=== PATIENT | female | born 1970 | race Caucasian/White ===

== ENCOUNTER 2020-09-18 13:15 | Day surgery (SDC) | payer BC ==
[2020-09-14 11:18] LABS: BASOPHILS # (AUTO) 0.1 X10'3 (0-0.2); BASOPHILS % (AUTO) 1.4 % (0-1); EOSINOPHILS % (AUTO) 0.9 % (0-6); LYMPHOCYTES # (AUTO) 1.3 X10'3 (1.1-4.8); MEAN CORPUSCULAR HEMOGLOBIN 32.4 PG (27.0-31.0); MEAN CORPUSCULAR HGB CONC 34.1 g/dL (33.0-36.5); MEAN CORPUSCULAR VOLUME 95.2 FL (78-98); MEAN PLATELET VOLUME 8.6 FL (7.4-10.4); MONOCYTES # (AUTO) 0.3 X10'3 (0-0.9); MONOCYTES % (AUTO) 6.6 % (2-12); NEUTROPHILS # (AUTO) 2.5 X10'3 (1.8-7.7); NEUTROPHILS % (AUTO) 60.1 % (42-75); PRE OP HEMOGLOBIN 12.6 g/dL (12.0-16.0); PRE OP PLATELET COUNT 210 X10'3 (140-440); RED BLOOD COUNT 3.89 X10'6 (4.20-5.60); RED CELL DISTRIBUTION WIDTH 12.3 % (11.5-14.5)
[2020-09-14 11:38] LABS: CLARITY,URINE SLIGHTLY CLOUDY (Clear); COLOR,URINE YELLOW (Yellow); GLUCOSE, URINE NEGATIVE (Neg); KETONES,URINE NEGATIVE (Neg); LEUKOCYTE ESTERASE ,URINE TRACE (Neg); NITRITES, URINE NEGATIVE (Neg); OCCULT BLOOD,URINE NEGATIVE (Neg); PROTEIN,URINE NEGATIVE (Neg)
[2020-09-14 11:39] LABS: CHLORIDE 105 MMOL/L (99-107); PRE OP GLUCOSE 82 MG/DL (70-104); PRE OP SODIUM 141 MMOL/L (135-145); TOTAL CARBON DIOXIDE 27.3 MMOL/L (24-32)
[2020-09-14 11:40] LABS: BLOOD UREA NITROGEN 12 MG/DL (7-18); BUN/CREATININE RATIO 11.8 (6.6-38.0); CALCIUM 8.7 MG/DL (8.5-10.1); CREATININE 1.02 MG/DL (0.40-0.90); PRE OP ANION GAP 9 (8-16); eGFR 57 ML/MIN
[2020-09-14 11:41] LABS: ALBUMIN 3.7 G/DL (3.4-5.0); ALKALINE PHOSPHATASE 41 IU/L (46-116); PRE OP ALT 16 U/L (30-65); PRE OP AST 10 U/L (10-37); PRE OP BILIRUB, TOTAL 0.4 MG/DL (0.0-1.0); TOTAL PROTEIN 7.4 G/DL (6.4-8.2)
[2020-09-14 11:45] LABS: BACTERIA,URINE 3+ /HPF (Neg); MUCUS STRANDS NONE SEEN /LPF (Neg); RBC,URINE NONE SEEN /HPF (0-2); SQUAMOUS EPITHELIAL CELL,UR FEW /LPF (FEW); UA COLLECTION TYPE NON-SPECIFIED; WBC,URINE 0-4 /HPF (0-4)
[~2020-09-18] VITALS: Ht 165.1 cm; Wt 70.3 kg
[2020-09-18] VITALS (14 sets, daily range): BP systolic 132–164; BP diastolic 71–89
[~2020-09-18 13:15] MED LIST: DULO-31 PO; ESTR2TAB PO; INDOCYANINE GREEN 25 MG/10 ML VIAL IV ONE; LAMO100T2 PO; TOPI50TA PO; TRAM50TA2 PO; ceFOXitin sod/dextrose 2g/50ml 50 ML IV ONE; famotidine 20mg tablet PO ONE; ringers solution, lacted 1,000 ML IV SCH
[2020-09-18] MEDS ORDERED: BUPIVAcaine/PF 2.5 mg/ml (0.25%) 30ml vial ONE (14:24)
[2020-09-18] MEDS ORDERED: ceFAZolin 1000mg inj ONE (14:24)
[2020-09-18] MEDS ORDERED: midazolam 2 mg/2 ml injection ONE (14:36)
[2020-09-18] MEDS ORDERED: fentaNYL/PF 50MCG/1 ML 2ML syringe ONE ×2 (14:36→16:01)
[2020-09-18] MEDS ORDERED: rocuronium 10mg/ml inj IV ONE (14:38)
[2020-09-18] MEDS ORDERED: propofol inj 20 ML IV ONE (14:38)
[2020-09-18] MEDS ORDERED: neostigmine methylsulfate 1 MG/ML 10ml vial ONE (14:38)
[2020-09-18] MEDS ORDERED: LIDOcaine 2% (20mg/ml) 5ml vial ONE (14:38)
[2020-09-18] MEDS ORDERED: glycopyrrolate 0.2mg/ml inj ONE (14:38)
[2020-09-18] MEDS ORDERED: dexamethasone sod phosphate 4mg/ml inj. ONE (14:38)
[2020-09-18] MEDS ORDERED: ondansetron/PF 4mg/2ml inj ONE (14:38)
[2020-09-18] MEDS ORDERED: meperidine/PF 25mg/ml syringe IV PRN ×2 (14:45)
[2020-09-18] MEDS ORDERED: ringers solution, lacted 1,000 ML IV SCH (14:45)
[2020-09-18] MEDS ORDERED: proCHLORperazine 10 MG/2 ml inj IV PRN (14:45)
[2020-09-18] MEDS ORDERED: ondansetron/PF 4mg/2ml inj IV PRN (14:45)
[2020-09-18] MEDS ORDERED: morphine 4 MG/ML inj SYRINge IV PRN (14:45)
[2020-09-18] MEDS ORDERED: morphine 2 MG/ML inj. syringe IV PRN (14:45)
[2020-09-18] MEDS ORDERED: sevoflurane 250ml liquid IH ONE (15:46)
[2020-09-18] MEDS ORDERED: acetaminophen 1,000mg/100ml IV 100 ML IV ONE (16:07)
[2020-09-18] MEDS ORDERED: meperidine/PF 25mg/ml syringe ONE (17:27)
[2020-09-18] MEDS ORDERED: ePHEDrine 50MG/ML INJ. ONE (17:33)
[2020-09-18] MEDS ORDERED: labetalol 20mg/4ml (5mg/ml) syringe IV ONE (17:33)
--- NOTE | 2020-09-18 17:33 | NUR ---
RECEIVED FROM OR VIA [facility] ACCOMPANIED BY ANESTHESIOLOGIST DR LABOY, REPORT GIVEN. PT DROWSY BUT AROUSES WITH COMPLAINT OF PAIN AT A LEVEL 8. 20 GAUGE PIV R HAND PATENT AND RUNNING LR AT 100 ML/HR. LG BANDAID DRESSINGS X4 TO ABD CDI, ABD SOFT. PPULSES PALPABLE, BRISK CAP REFILL, SKIN PINK AND WARM, VSS.
[2020-09-18] MEDS: meperidine/PF 25mg/ml syringe IV PRN ×3 (17:51→18:18)
[2020-09-18] MEDS ORDERED: ondansetron 4mg rapidly disintigrating tab PO ONE (19:10)
--- NOTE | 2020-09-18 19:33 | NUR ---
PT AWAKE AND ALERT WITH COMPLAINT OF PAIN AT A LEVEL 5. 20 GAUGE PIV R HAND DC/D CATH TIP INTACT. LG BANDAID DRESSINGS X4 TO ABD CDI, ABD SOFT. PPULSES PALPABLE, BRISK CAP REFILL, SKIN PINK AND WARM, VSS. PT TOLERATING FLUIDS AND ABLE TO DRESS SELF. WHILE DRESSING SOME NAUSEA OCCURRED, ZOFRAN GIVEN. DISCHARGE INSTRUCTIONS GIVEN AND PT VERBALIZED UNDERSTANDING. TRANSPORTED VIA WHEELCHAIR TO IN PRIVATE VEHICLE TO HOME. MIN ASSIST TO STEP UP INTO TRUCK.
== END 2020-09-18 19:33 | disposition home or self-care (01) ==
LOC: PAS 13:15
PROVIDERS: ATTEND Surgery
DX: K82.8 Other specified diseases of gallbladder (principal); K81.1 Chronic cholecystitis; K21.9 Gastro-esophageal reflux disease without esophagitis; Z20.828 Contact with and (suspected) exposure to other viral communicable diseases; Z90.710 Acquired absence of both cervix and uterus; Z98.890 Other specified postprocedural states; Z79.899 Other long term (current) drug therapy
CPT/HCPCS: 36415; 47562; 80053; 81001; 82948; 85025; 87077; 87088; 87186; 87635; 93005; J0131; J0690; J0694; J1100; J2001; J2175; J2250; J2405; J2704; J2710; J3010; J3490; J7120; S2900; A4215; A4618; A7000

== ENCOUNTER 2024-07-21 01:38 | Outpatient (CLI) | payer BC ==
[~2024-07-21 01:38] MED LIST changes: -INDOCYANINE GREEN 25 MG/10 ML VIAL IV ONE; -ceFOXitin sod/dextrose 2g/50ml 50 ML IV ONE; -famotidine 20mg tablet PO ONE; -ringers solution, lacted 1,000 ML IV SCH
== END 2024-07-21 23:59 | disposition home or self-care (01) ==
LOC: CARD DIAG 01:38
PROVIDERS: ATTEND Internal Medicine Interventional Cardiology
DX: R55 Syncope and collapse (principal)
CPT/HCPCS: 94625

== ENCOUNTER 2024-08-11 08:26 | Outpatient (CLI) | payer BC ==
[2024-08-11] VITALS (21 sets, daily range): BP systolic 121–151; BP diastolic 78–97; PULSE 60–80
== END 2024-08-11 23:59 | disposition home or self-care (01) ==
LOC: CARD DIAG 08:26
PROVIDERS: ATTEND Internal Medicine Interventional Cardiology
DX: R55 Syncope and collapse (principal)
CPT/HCPCS: 93660